=== PATIENT | male | born 1940 | race Caucasian/White ===

== ENCOUNTER 2022-04-06 07:00 | Outpatient (CLI) | payer MEDICARE, OTHER ==
--- NOTE | 2022-04-06 13:42 | XRAY Report ---
PROCEDURE: Lumbar Spine 2 View INDICATIONS: CONTUSION OF LOWER BACK TECHNIQUE: 3 views of the lumbar spine were acquired. COMPARISON: None. FINDINGS: Bones: 5 [id number] vertebrae are present. There is no evidence for acute traumatic malalignme nt. No acute vertebral body compression fractures. Diffuse osteopenia. Moderate severe multilevel niki mbar spondylosis with significant disc space loss at L2-3. At this level, moderate degenerative endpl ate changes and prominent endplate osteophyte formation. There is also moderate lower lumbar facet ar thropathy. Minimal grade 1 anterolisthesis of L4 on L5 as well as L5 on S1. No suspicious bony lesion s. Soft tissues: Overlying bowel gas pattern is normal. No suspicious soft tissue calcifications. IMPRESSION: Lumbar spine without acute fracture or traumatic malalignment. Moderate-severe multilevel lumbar spondylosis most severe at L2-3 and L5-S1. Grade 1 anterolisthesis of L4 on L5 and L5 on S1 likely related to spondylitic changes. Reviewed by: Kb Beltran MD on 04/06/2022 1:41 PM PDT Approved by: Kb Beltran MD on 04/06/2022 1:41 PM PDT Station ID: [id number]
--- NOTE | 2022-04-06 13:44 | XRAY Report ---
PROCEDURE: Hip w/Pelvis 2-3V LT INDICATIONS: CONTUSION OF PELVIS TECHNIQUE: AP pelvis with lateral view(s) of the left hip(s). COMPARISON: None. FINDINGS: Bones: No acute fractures or dislocations. Pelvic ring appears intact. No suspicious bony lesions. Moderate degenerative changes of the bilateral hip joints. Lower lumbar spondylosis. Soft tissues: The visualized bowel gas pattern is normal. No suspicious soft tissue calcifications. IMPRESSION: Left hip without acute fracture or dislocation. Moderate degenerative changes of the manpreet ateral hips with lower lumbar spondylosis. If there is persistent high clinical suspicion for radiographically occult fracture, consider further evaluation with CT or MRI. Reviewed by: Kb Beltran MD on 04/06/2022 1:43 PM PDT Approved by: Kb Beltran MD on 04/06/2022 1:43 PM PDT Station ID: [id number]
== END 2022-04-06 23:59 | disposition home or self-care (01) ==
LOC: DI.S 07:00
PROVIDERS: ATTEND Physician Assistant Medical
DX: S30.0XXA Contusion of lower back and pelvis, initial encounter (principal); M16.0 Bilateral primary osteoarthritis of hip; M47.816 Spondylosis without myelopathy or radiculopathy, lumbar region; M43.16 Spondylolisthesis, lumbar region; M43.17 Spondylolisthesis, lumbosacral region